=== PATIENT | female | born 1990 | race Caucasian/White ===

== ENCOUNTER 2018-11-16 02:14 | Emergency (ER) | payer BC ==
[~2018-11-16] VITALS: Ht 157.5 cm; Wt 86.7 kg
[~2018-11-16 02:14] MED LIST: LABE200T25 PO
[2018-11-16 02:20] VITALS: Ht 157.5 cm; Wt 86.7 kg
--- NOTE | 2018-11-16 05:50 | ERD ---
ER Documentation Chief Complaint Chief Complaint palpitations x 3 hours. denies cp or sob. hx of anxiety HPI This is a 27-year-old female who presents here in the emergency department with complaints of shortness of breath, chest pain for 3 hours. LMP: 10/24/2018. . Denies headache, head injury, loss of consciousness, dizziness, neck pain, neck stiffness, throat pain, difficulty swallowing, difficulty breathing lying flat, shoulder pain, back pain, abdominal pain, nausea, vomiting, constipation, diarrhea, urinary symptoms, or possibility being , loss of bowel and bladder control, trauma, injury, falls, difficulty walking due to pain, numbness or tingling sensation, calf pain, recent travel, recent major surgery in the last 3 weeks, calf pain, recent long travel, recent exposure to any illness, recent antibiotic use in the last 3 months, fever, chills, seizures. Past medical history: Hypertension. Medication: Amlodipine. Lisinopril. Surgical history: Social: Denies smoking, use of alcoholic beverages, use of illegal drugs. ROS All systems reviewed and are negative except as per history of present illness. Medications Home Meds Active Scripts Hydroxyzine Hcl* (Hydroxyzine Hcl*) 50 Mg Tablet, 50 MG PO Q6H PRN for ANXIETY, #30 TAB Prov:CHECO MOE 11/16/18 Reported Medications Labetalol Hcl* (Labetalol Hcl*) 200 Mg Tablet, 200 MG PO TID, TAB 09/23/15 Allergies Allergies: Coded Allergies: No Known Allergy (Unverified , 09/23/15) PMhx/Soc History of Surgery: Yes (knee sx) Anesthesia Reaction: No Hx Cardiac Disorders: Yes (htn) Hx Psychiatric Problems: No Hx Miscellaneous Medical Probl: No Hx Alcohol Use: No Hx Substance Use: No Hx Tobacco Use: No Physical Exam Vitals Physical Exam Const: No acute distress Head: Atraumatic Eyes: Normal Conjunctiva ENT: Normal External Ears, Nose and Mouth. Neck: Full range of motion. No meningismus. No nuchal rigidity. No signs of meningeal irritation. Resp: Clear to auscultation bilaterally. Chest area: Examined with female cylinder machine operator pulp drier, RN. No vesicular lesions. Cardio: Regular rate and rhythm, no murmurs Abd: Soft, non tender, non distended. Normal bowel sounds. Negative Kay sign. Negative psoas sign. Negative Rovsing's sign. No CVA tenderness. Ambulatory with steady gait and without pain to lower abdomen. Skin: No petechiae or rashes. No vesicular lesions. No skin tenting. No signs of severe dehydration. Back: No midline or flank tenderness Ext: No cyanosis, or edema Neur: Awake and alert. No neurological deficits. Psych: Normal Mood and Affect. Denies auditory hallucinations/delusions. Not suicidal. Not homicidal. Has the capacity to decide for herself. Has good support system at home. Results 24 hrs Laboratory Tests Test 11/16/18 06:15 POC Beta HCG, Qualitative NEGATIVE Current Medications Medications Dose Sig/Jackie Start Time Status Last (Trade) Ordered Route PRN Stop Time Admin Dose Reason Admin Aspirin 325 mg ONCE ONCE 11/16/18 DC 11/16/18 (Aspirin) PO 07:00 06:44 11/16/18 07:00 Lorazepam 1 mg ONCE ONCE 11/16/18 DC 11/16/18 (Ativan) PO 07:00 06:45 11/16/18 07:00 Procedures/MDM Diagnostic tests: POC urine : Negative. EKG: Sinus tachycardia with a ventricular rate of 106 bpm. No STEMI. Read by supervising physician. Treatment: Aspirin. Ativan. Re-evaluation: Denies headache, dizziness, neck pain, neck stiffness, difficulty breathing when lying flat, abdominal pain. No clammy skin. No abdominal tenderness. Denies auditory hallucinations/delusions. Not suicidal. Not homicida l. Has the capacity to decide for herself. Has good support system at home. Differential diagnosis I have low suspicion for acute myocardial infarction, acute coronary syndrome, pneumonia, pulmonary embolism, pneumonia, pancreatitis, cholecystis, severe depression, 51/50. Final diagnosis: Anxiety. Prescription: Hydroxyzine. Follow-up with PCP in the next 24-48 hours. Come back here in the emergency department for any new symptoms or any worsening symptoms. All questions and concerns were answered. Patient and family members verbalized understanding and agreed with plan of care. Hemodynamically stable on discharge. Departure Diagnosis: Primary Impression: Anxiety Condition: Stable Additional Instructions: Follow-up with PCP in the next 24-48 hours. Come back here in the emergency department for any new symptoms or any worsening symptoms. CHECO MOE Nov 16, 2018 05:50
[2018-11-16] MEDS ORDERED: HYDR50TA15 PO (06:34)
[2018-11-16 06:50] VITALS: BP 137/81; PULSE 75; RESP 16
[2018-11-16] MEDS ORDERED: ASPIRIN 325 MG TAB PO ONE (07:00)
[2018-11-16] MEDS ORDERED: LORAZEPAM 1 MG TAB PO ONE (07:00)
== END 2018-11-16 06:53 | disposition home or self-care (01) ==
LOC: FTE 02:14
DX: I10 Essential (primary) hypertension (principal); F41.9 Anxiety disorder, unspecified
CPT/HCPCS: 81025; 93005; 99283; Z7610